=== PATIENT | male | born 1985 | race Caucasian/White ===

== ENCOUNTER 2018-04-03 17:34 | Emergency (ER) | payer OTHER ==
[2018-04-03 17:43] VITALS: BP 115/62; PULSE 72; TEMP 98.1; BMI 28.3
--- NOTE | 2018-04-03 17:45 | PDOC ---
Rapid Medical Evaluation Chief Complaint: Ear Problem Time Seen by Provider: 04/03/18 17:42 Medical Evaluation: 04/03/18 17:42 I have performed a brief in-person evaluation of this patient. The patient presents with a chief complaint of: bloody ottorrhea to R ear after using qtip Pertinent physical exam findings:will defer ear exam to FT provider I have ordered the following:nothing The patient will proceed to the ED for further evaluation. Discharge Disposition - Diagnosis Otorrhea Qualifiers: Laterality: right Qualified Code(s): H92.11 - Otorrhea, right ear - Referrals - Patient Instructions - Post Discharge Activity
--- NOTE | 2018-04-03 18:49 | PDOC ---
History of Present Illness - General Chief Complaint: Ear Problem Stated Complaint: EAR PAIN Time Seen by Provider: 04/03/18 17:42 History Source: Patient Exam Limitations: No Limitations - History of Present Illness Initial Comments: 04/03/18 18:49 Patient is a 32-year-old male with no past medical history who presents to the emergency department today for ear pain and ear discharge. Patient states he has been taking ciprofloxacin drops for the last week and a half for an ear infection. He does not think the drops are working. He has seen both his PCP and ENT for this problem. Today he saw cottage white discharge as well as blood. He was panicked so he came to the emergency department. Denies fevers, chills, hearing changes, tinnitus, sinus pain, cough Past History - Travel Traveled outside of the country in the last 30 days: No Close contact w/someone who was outside of country & ill: No - Past Medical History Home Medications: Ambulatory Orders Gabapentin [Neurontin -] 300 mg PO Q8H 04/03/18 Ofloxacin Otic [Floxin Otic -] 10 drop OD DAILY #100 drops 04/03/18 Oxycodone HCl/Acetaminophen [Percocet 5-325 mg Tablet] 1 tab PO Q4H 04/03/18 COPD: No - Surgical History Appendectomy: Yes - Immunization History Immunization Up to Date: Yes - Suicide/Smoking/Psychosocial Hx Smoking History: Never smoked Hx Alcohol Use: No Drug/Substance Use Hx: No Review of Systems - Review of Systems Able to Perform ROS?: Yes Is the patient limited [place] Citizen proficient: No Constitutional: No: Fever, Weakness HEENTM: Yes: Ear Pain, Ear Discharge (R ear). No: Nose Congestion, Tinnitus Respiratory: No: Cough, Shortness of Breath, Wheezing Neurological: No: Headache All Other Systems: Reviewed and Negative *Physical Exam - Vital Signs Last Vital Signs Temp Pulse Resp BP Pulse Ox 98.1 F 72 18 115/62 99 04/03/18 17:40 04/03/18 17:40 04/03/18 17:40 04/03/18 17:40 04/03/18 17:40 - Physical Exam General Appearance: Yes: Nourished, Appropriately Dressed. No: Apparent Distress (sitting on exam bed breathing easily) HEENT: positive: EOMI, JESSE, Normal Voice, TMs Normal (L TM is normal. Unable to visualize the R TM), Other (Cottage white cheese discharge to R ear canal. Also with erythema. Unable to visualize TM). negative: Tonsillar Exudate, Tonsillar Erythema, Nasal Congestion, Rhinorrhea Neck: positive: Trachea midline, Supple. negative: Tender, Rigid, Lymphadenopathy (R), Lymphadenopathy (L) Medical Decision Making - Medical Decision Making 04/03/18 18:54 Patient is a 32-year-old male with no past medical history who presents with a clinical otitis externa currently on Floxin drops as per his primary care doctor. They do not seem to be working at this time as patient still with a lot of discharge. We'll switch antibiotic drops at this time. Also instructed patient to keep the ear dry. Patient understands all discharge instructions. Return precautions are given. Patient to follow-up with ENT as scheduled. Patient understands all discharge instructions and all questions were answered. *DC/Admit/Observation/Transfer Diagnosis at time of Disposition: Otitis externa Qualifiers: Otitis externa type: unspecified type Chronicity: acute Laterality: right Qualified Code(s): H60.501 - Unspecified acute noninfective otitis externa, right ear - Discharge Dispostion Disposition: HOME Condition at time of disposition: Good Decision to Admit order: No - Referrals Referrals: Ankur Bautista MD [Staff Physician] - - Patient Instructions Printed Discharge Instructions: DI for Otitis Externa Additional Instructions: You have an infection of the ear canal. This is called otitis externa. Please molded goods spot picker the ofloxacin eardrops prescribed to you. Follow the instructions on the bottle. These are antibiotics. Do not pick or scratch at the ear. Please keep the ear dry. You may wear swimmers ear plugs in the shower to help keep the water out. Take the earplugs out after showering and wash them. Please follow up with her ENT as scheduled. Return to the emergency department if you have worsening pain, fevers, chills, have changes in your hearing, or feel any changes in your symptoms. - Post Discharge Activity Forms/Work/School Notes: Back to Work
== END 2018-04-03 18:46 | disposition home or self-care (01) ==
LOC: JERFT 17:34
DX: H60.501 Unspecified acute noninfective otitis externa, right ear (principal); H92.11 Otorrhea, right ear
CPT/HCPCS: 99281-25